=== PATIENT | male | born 1990 | race African-American/Black ===

== ENCOUNTER 2018-06-07 15:59 | Emergency (ER) | payer OTHER, SELFPAY ==
--- NOTE | 2018-06-07 16:59 | ER ---
Nurse's Notes [facility] Name: Mando Dorado Age: 27 yrs Sex: Male : 1990 Arrival Date: 06/07/2018 Time: 16:02 Bed 23 Private MD: None, None Diagnosis: Acute streptococcal tonsillitis, unspecified Presentation: 06/07 16:11 Presenting complaint: Patient states: my throat hurts and it started 3 days ago; and hj now my L ear hurts; reports fever and chills; took tylenol 2 am today;. Transition of care: patient was not received from another setting of care. Onset of symptoms was June 07, 2018. Risk Assessment: Do you want to hurt yourself or someone else? Patient reports no desire to harm self or others. Initial Sepsis Screen: Does the patient meet any 2 criteria? No. Patient's initial sepsis screen is negative. Does the patient have a suspected source of infection? No. Patient's initial sepsis screen is negative. Care prior to arrival: None. 16:11 Method Of Arrival: Ambulatory 16:11 Acuity: MINI 4 hj Triage Assessment: 16:12 General: Appears in no apparent distress. uncomfortable, Behavior is calm, cooperative, hj appropriate for age. Pain: Complains of pain in throat. EENT: Reports pain when swallowing. Historical: - Allergies: 16:12 No Known Allergies; hj - Home Meds: 16:12 None [Active]; hj - PMHx: 16:12 None; hj - PSHx: 16:12 None; hj - Immunization history:: Adult Immunizations up to date. - Social history:: Smoking status: Patient uses tobacco products, Patient uses alcohol. - Ebola Screening: : Patient negative for fever greater than or equal to 101.5 degrees Fahrenheit, and additional compatible Ebola Virus Disease symptoms Patient denies exposure to infectious person Patient denies travel to an Ebola-affected area in the 21 days before illness onset. Screenin:13 Abuse screen: Denies threats or abuse. Denies injuries from another. Nutritional hj screening: No deficits noted. Tuberculosis screening: No symptoms or risk factors identified. Fall Risk None identified. Assessment: 16:13 Respiratory: Airway is patent Respiratory effort is even, unlabored, Respiratory hj pattern is regular, symmetrical, Breath sounds are clear. EENT: Throat. 17:03 General: Appears in no apparent distress. uncomfortable, Behavior is calm, cooperative, aj1 appropriate for age. Pain: Complains of pain in left aspect of posterior pharynx and right aspect of posterior pharynx. Neuro: Level of Consciousness is awake, alert, obeys commands. Cardiovascular: Patient's skin is warm and dry. Respiratory: Airway is patent Respiratory effort is even, unlabored, Respiratory pattern is regular, symmetrical. GI: No signs and/or symptoms were reported involving the gastrointestinal system. : No signs and/or symptoms were reported regarding the genitourinary system. EENT: Throat is reddened bilaterally. Derm: No signs and/or symptoms reported regarding the dermatologic system. Skin is pink, warm \T\ dry. normal. Musculoskeletal: No signs and/or symptoms reported regarding the musculoskeletal system. Circulation, motion, and sensation intact. Vital Signs: 16:13 BP 132 / 100; Pulse 92; Resp 18; Temp 98.1(TE); Pulse Ox 99% on R/A; Weight 90.72 kg; hj Height 5 ft. 8 in. (172.72 cm); Pain 10/10; 16:13 Body Mass Index 30.41 (90.72 kg, 172.72 cm) ED Course: 16:02 Patient arrived in ED. mr 16:03 None, None is Private Physician. mr 16:12 Triage completed. hj 16:13 Arm band placed on right wrist. hj 16:13 Patient has correct armband on for positive identification. Bed in low position. Call light in reach. Side rails up X 1. 16:26 Strep Sent. hj 16:26 Flu Sent. hj 16:32 Serge Byrd PA is PHCP. [facility] 16:32 Conner Lizama MD is Attending Physician. jr8 17:03 Zamzam Escamilla, LORETO is Primary Nurse. aj1 17:03 No provider procedures requiring assistance completed. Patient did not have IV access aj1 during this emergency room visit. Administered Medications: No medications were administered Outcome: 16:58 Discharge ordered by . jr8 17:13 Discharged to home ambulatory. aj1 17:13 Condition: good 17:13 Discharge instructions given to patient, Instructed on discharge instructions, follow up and referral plans. medication usage, Demonstrated understanding of instructions, follow-up care, medications, Prescriptions given X 3. 17:13 Patient left the ED. aj1 Signatures: Zamzam Escamilla RN RN aj1 JoséLavinia ellsworth mr Serge Byrd PA PA jr8 Kalin Núñez RN RN hj Corrections: (The following items were deleted from the chart) 16:15 16:13 Pulse 92bpm; Resp 18bpm; Pulse Ox 99% RA; Temp 98.1F Temporal; 90.72 kg; Height 5 hj ft. 8 in.; BMI: 30.4; Pain 10/10; hj
--- NOTE | 2018-06-07 16:59 | EDPHYS ---
Physician Documentation [facility] Name: Mando Dorado Age: 27 yrs Sex: Male : 1990 Arrival Date: 06/07/2018 Time: 16:02 Bed 23 Private MD: None, None ED Physician Conner Lizama HPI: 06/07 16:51 This 27 yrs old Black Male presents to ER via Ambulatory with complaints of Sore jr8 Throat, Breathing Difficulty. 16:51 The patient presents with sore throat. The patient describes throat pain as constant, jr8 raw. Onset: The symptoms/episode began/occurred gradually, 3 day(s) ago. Severity of symptoms: At their worst the symptoms were moderate, in the emergency department the symptoms are unchanged. Modifying factors: The symptoms are alleviated by nothing, the symptoms are aggravated by swallowing. Associated signs and symptoms: Pertinent positives: fever. The patient has not experienced similar symptoms in the past. The patient has not recently seen a physician. Historical: - Allergies: 16:12 No Known Allergies; hj - Home Meds: 16:12 None [Active]; hj - PMHx: 16:12 None; hj - PSHx: 16:12 None; hj - Immunization history:: Adult Immunizations up to date. - Social history:: Smoking status: Patient uses tobacco products, Patient uses alcohol. - Ebola Screening: : Patient negative for fever greater than or equal to 101.5 degrees Fahrenheit, and additional compatible Ebola Virus Disease symptoms Patient denies exposure to infectious person Patient denies travel to an Ebola-affected area in the 21 days before illness onset. ROS: 16:51 Eyes: Negative for injury, pain, redness, and discharge, Neck: Negative for injury, jr8 pain, and swelling, Cardiovascular: Negative for chest pain, palpitations, and edema, Respiratory: Negative for shortness of breath, cough, wheezing, and pleuritic chest pain, Abdomen/GI: Negative for abdominal pain, nausea, vomiting, diarrhea, and constipation, Back: Negative for injury and pain, MS/Extremity: Negative for injury and deformity, Skin: Negative for injury, rash, and discoloration, Neuro: Negative for headache, weakness, numbness, tingling, and seizure. 16:51 Constitutional: Positive for fever. 16:51 ENT: Positive for difficulty swallowing, sore throat. Exam: 16:51 Head/Face: Normocephalic, atraumatic. Eyes: Pupils equal round and reactive to light, jr8 extra-ocular motions intact. Lids and lashes normal. Conjunctiva and sclera are non-icteric and not injected. Cornea within normal limits. Periorbital areas with no swelling, redness, or edema. Cardiovascular: Regular rate and rhythm with a normal S1 and S2. No gallops, murmurs, or rubs. Normal PMI, no JVD. No pulse deficits. Respiratory: Lungs have equal breath sounds bilaterally, clear to auscultation and percussion. No rales, rhonchi or wheezes noted. No increased work of breathing, no retractions or nasal flaring. Abdomen/GI: Soft, non-tender, with normal bowel sounds. No distension or tympany. No guarding or rebound. No evidence of tenderness throughout. Back: No spinal tenderness. No costovertebral tenderness. Full range of motion. Skin: Warm, dry with normal turgor. Normal color with no rashes, no lesions, and no evidence of cellulitis. MS/ Extremity: Pulses equal, no cyanosis. Neurovascular intact. Full, normal range of motion. Neuro: Awake and alert, GCS 15, oriented to person, place, time, and situation. Cranial nerves II-XII grossly intact. Motor strength 5/5 in all extremities. Sensory grossly intact. Cerebellar exam normal. Normal gait. 16:51 ENT: External ear(s): are unremarkable, Ear canal(s): are normal, clear, TM's: are normal, no evidence of bulging, no dullness, no erythema, no fluid levels, no hemotympanum, no rupture, normal bony landmarks, normal mobility, Nose: External nose: no obvious acute abnormality, Nasal septum: is midline, Nasal mucosa: moist, Turbinates: are normal, Mouth: Lips: moist, Oral mucosa: pink and intact, moist, Gums: pink, Tongue: is moist, Posterior pharynx: Airway: patent, Tonsils: bilaterally enlarged, with erythema, no exudate, no ulcerations, Uvula: midline, non-edematous, no erythema, swelling, is not appreciated, erythema, that is moderate. 16:51 Neck: External neck: is normal, C-spine: appears grossly normal, Thyroid: appears normal, Trachea: is midline with no obvious abnormalities, ROM/movement: is normal, Lymph nodes: lymphadenopathy is appreciated, submandibular nodes. Vital Signs: 16:13 BP 132 / 100; Pulse 92; Resp 18; Temp 98.1(TE); Pulse Ox 99% on R/A; Weight 90.72 kg; hj Height 5 ft. 8 in. (172.72 cm); Pain 10/10; 16:13 Body Mass Index 30.41 (90.72 kg, 172.72 cm) MDM: 16:32 Patient medically screened. [facility] 16:51 Data reviewed: vital signs, nurses notes, lab test result(s), and as a result, I will 8 discharge patient. Data interpreted: Pulse oximetry: on room air is 99 %. Interpretation: normal. Counseling: I had a detailed discussion with the patient and/or guardian regarding: the historical points, exam findings, and any diagnostic results supporting the discharge/admit diagnosis, lab results, the need for outpatient follow up, a family practitioner, to return to the emergency department if symptoms worsen or persist or if there are any questions or concerns that arise at home. 06/07 16:15 Order name: Flu; Complete Time: 16:47 06/07 16:15 Order name: Strep; Complete Time: 16:47 Administered Medications: No medications were administered Disposition: 06/08 15:57 Co-signature as Attending Physician, Conner Lizama MD I agree with the assessment and kdr plan of care. Disposition: 06/07/18 16:58 Discharged to Home. Impression: Acute streptococcal tonsillitis, unspecified. - Condition is Stable. - Discharge Instructions: Strep Throat. - Prescriptions for Augmentin 875- 125 mg Oral Tablet - take 1 tablet by ORAL route every 12 hours for 10 days; 20 tablet. Tessalon Perles 100 mg Oral Capsule - take 1 capsule by ORAL route every 8 hours As needed; 15 capsule. Ibuprofen 800 mg Oral Tablet - take 1 tablet by ORAL route every 12 hours As needed take with food; 20 tablet. - Medication Reconciliation Form, Thank You Letter, Antibiotic Education, Prescription Opioid Use form. - Follow up: Private Physician; When: 1 week; Reason: Recheck today's complaints, Continuance of care, Re-evaluation by your physician. - Problem is new. - Symptoms have improved. Signatures: Dispatcher [employer] EDZamzam Rucker RN RN aj1 Conner Lizama MD MD kdr Serge Byrd PA PA jr8 Kalin Núñez RN RN hj Corrections: (The following items were deleted from the chart) 06/07 17:13 16:58 06/07/2018 16:58 Discharged to Home. Impression: Acute streptococcal tonsillitis, aj1 unspecified. Condition is Stable. Forms are Medication Reconciliation Form, Thank You Letter, Antibiotic Education, Prescription Opioid Use. Follow up: Private Physician; When: 1 week; Reason: Recheck today's complaints, Continuance of care, Re-evaluation by your physician. Problem is new. Symptoms have improved. jr8
== END 2018-06-07 17:13 | disposition home or self-care (01) ==
LOC: ER 15:59
DX: J03.00 Acute streptococcal tonsillitis, unspecified (principal); Z72.0 Tobacco use
CPT/HCPCS: 87081; 87804; 99283

== ENCOUNTER 2021-05-17 01:05 | Emergency (ER) | payer SELFPAY ==
--- OUTSIDE RECORDS SUMMARY | 2021-05-17 01:09 | XMS REPORT | Continuity of Care Document ---
:1990 Author Organization [facility] t Address [address] [place] [address] Dr. Perrin [address] [place] [id number] Care Team Providers Name Role Phone Unavailable Unavailable Unavailable Problems Condition Condition Condition Status Onset Resolution Last Treating Co mments Source Name Details Category Date Date Treatment Clinician Date Well adult Well adult Diagnosis Active [facility] routine on routine [facility] Adult BMI Adult BMI Diagnosis Active [facility] 30.0-30.9 30.0-30.9 [place] [facility] - kg/sq m kg/sq m [facility] ent Clinics Tobacco Tobacco Diagnosis Active [facility] ent Clinics Elevated Elevated Diagnosis Active [facility] BP without BP without Lucinda s - diagnosis diagnosis Taye joe of of l hypertensi hypertensi Ou tpati on on ent Clinics Allergies, Adverse Reactions, Alerts This patient has no known allergies or adverse reactions. Medications This patient has no known medications. Procedures This patient has no known procedures. Encounters Start End Encounter Admission Attending Care Care Encounter Source Date/Time Date/Time Type Type Clinicians Facility Department ID 2018-06-16 2018-06-16 Outpatient Migdalia Douglass [id number] [facility] [address] 13:00:00 13:00:00 [facility] Medicine [facility] ent Clinics Results This patient has no known results.
--- NOTE | 2021-05-17 02:09 | ER ---
Nurse's Notes [facility] Name: Mando Dorado Age: 30 yrs Sex: Male : 1990 Arrival Date: 05/17/2021 Time: 01:11 Bed Waiting Private MD: Diagnosis: Presentation: 05/17 01:15 Chief complaint: Patient states: short of breath, cough. Coronavirus screen: Vaccine da3 status: Patient reports being unvaccinated. Ebola Screen: No symptoms or risks identified at this time. Initial Sepsis Screen: Does the patient meet any 2 criteria? No. Patient's initial sepsis screen is negative. Risk Assessment: Do you want to hurt yourself or someone else? Patient reports no desire to harm self or others. Onset of symptoms was May 17, 2021. 01:15 Method Of Arrival: Ambulatory da3 01:15 Acuity: MINI 4 da3 Triage Assessment: 01:18 General: Appears in no apparent distress. comfortable, Behavior is calm, cooperative. da3 Pain: Complains of pain in chest Pain currently is 6 out of 10 on a pain scale. Respiratory: Reports cough that is pain with cough pain with movement pain with respiration Onset: The symptoms/episode began/occurred gradually, the patient has mild shortness of breath. Historical: - Allergies: 01:17 No Known Allergies; da3 - Immunization history:: Client reports having NOT received the Covid vaccine. - Social history:: Smoking status: Patient reports the use of cigarette tobacco products, smokes one-half pack cigarettes per day. Vital Signs: 01:15 BP 130 / 77; Pulse 90; Resp 20; Temp 99.1; Pulse Ox 99% on R/A; Weight 102.06 kg; da3 Height 5 ft. 8 in. (172.72 cm); 01:15 Body Mass Index 34.21 (102.06 kg, 172.72 cm) da3 ED Course: 01:11 Patient arrived in ED. 01:17 Triage completed. da3 Administered Medications: No medications were administered Outcome: 02:09 Patient left the ED. da3 Signatures: Maira Abraham David RN RN da3
[2021-05-17 02:19] VITALS: BP 130/77; TEMP 99.1; O2SAT 99
== END 2021-05-17 02:09 | disposition left against medical advice (07) ==
LOC: ER 01:05
DX: Z53.21 Procedure and treatment not carried out due to patient leaving prior to being seen by health care provider (principal)
CPT/HCPCS: 99281

== ENCOUNTER 2022-12-23 16:45 | Emergency (ER) | payer SELFPAY ==
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
[2022-12-23] MEDS ORDERED: NA CHLORIDE 0.9% 1,000 ML ONE (17:41)
--- NOTE | 2022-12-23 17:49 | RAD REPORT ---
EXAM DESCRIPTION: RAD - Chest Single View - 12/23/2022 5:33 pm CLINICAL HISTORY: PALPITATIONS Chest pain. COMPARISON: <Comparisons> FINDINGS: Portable technique limits examination quality. The lungs are grossly clear. The heart is normal in size. No displaced fractures. IMPRESSION: No acute intrathoracic process suspected.
[2022-12-23 17:56] LABS: Absolute Lymphocytes (CBC) 1.7 K/uL (0.7-4.9); Hematocrit 48.7 % (39.6-49.0); Lymphocytes % 22.9 % (15.3-44.8); MCV 89.1 fL (80-100); MPV 9.2 fL (7.6-11.3); RBC Red Blood Cell Count 5.47 M/uL (4.33-5.43)
[2022-12-23 18:07] LABS: Potassium 4.3 mEq/L (3.5-5.1); Troponin High Sensitivity 6.6 pg/mL (<58.9)
[2022-12-23 18:14] LABS: Magnesium 2.3 mg/dL (1.6-2.4); T3 Free 2.98 pg/mL (2.18-3.98); Thyroid Stimulating Hormone 1.19 uIU/mL (0.358-3.740)
[2022-12-23 18:35] LABS: Barbiturates NEGATIVE (NEGATIVE); Benzodiazepines NEGATIVE (NEGATIVE); Cocaine NEGATIVE (NEGATIVE); METHAMPHETAM NEGATIVE (NEGATIVE); Methadone NEGATIVE (NEGATIVE); Opiates NEGATIVE (NEGATIVE); Phencyclidine NEGATIVE (NEGATIVE); THC Cannibis NEGATIVE (NEGATIVE)
--- NOTE | 2022-12-23 19:30 | RAD REPORT ---
EXAM DESCRIPTION: US - Extrem Venous W Compress Marcus - 12/23/2022 7:14 pm CLINICAL HISTORY: SWELLING Bilateral leg edema and swelling. COMPARISON: <Comparisons> TECHNIQUE: Real-time sonographic interrogation of the left and right lower extremity deep venous sys tems was performed. FINDINGS: Normal compressibility, flow augmentation, phasic flow and spontaneous flow is identified in both the left and right lower extremity deep venous systems. IMPRESSION: No sonographic evidence of left or right lower extremity deep venous thrombosis.
--- NOTE | 2022-12-23 19:40 | EDPHYS ---
Physician Documentation [facility] Name: Mando Dorado Age: 32 yrs Sex: Male : 1990 Arrival Date: 12/23/2022 Time: 16:45 Bed 12 Private MD: ED Physician Santana Carrillo HPI: 12/23 17:25 This 32 yrs old Black Male presents to ER via Ambulatory with complaints of Feet cp Swelling, Irregular Pulse. 17:25 The patient presents with a history of heart racing. cp 17:25 Context: The symptoms occur at rest. Onset: The symptoms/episode began/occurred today. cp Duration: The patient or guardian reports a single episode, that is now resolved, that lasted 45 minute(s). Associated signs and symptoms: Pertinent positives: swelling of feet, Pertinent negatives: chest pain, cough, fever, SOB, syncope, near-syncope, vomiting. Severity of symptoms: in the emergency department the symptoms have resolved and did so just prior to arrival. Historical: - Allergies: 16:52 No Known Allergies; iw - Home Meds: 16:52 None [Active]; iw - PMHx: 16:52 None; iw - PSHx: 16:52 Exploratory laparotomy; iw - Immunization history:: Client reports having NOT received the Covid vaccine. - Social history:: Smoking status: Patient reports the use of cigarette tobacco products. ROS: 17:30 Constitutional: Negative for body aches, chills, fever, poor PO intake. cp 17:30 Cardiovascular: Positive for palpitations, Negative for chest pain. cp 17:30 Respiratory: Negative for cough, shortness of breath, wheezing. 17:30 Eyes: Negative for injury, pain, redness, and discharge. cp 17:30 ENT: Negative for drainage from ear(s), ear pain, sore throat, difficulty swallowing, difficulty handling secretions. 17:30 Neck: Negative for pain with movement, pain at rest, stiffness. 17:30 Abdomen/GI: Negative for abdominal pain, vomiting, diarrhea, constipation. 17:30 Back: Negative for pain at rest, pain with movement. 17:30 : Negative for urinary symptoms. 17:30 Skin: Negative for cellulitis, rash. 17:30 Neuro: Negative for altered mental status, dizziness, headache, syncope, weakness. 17:30 All other systems are negative. Exam: 17:05 ECG was reviewed by the Attending Physician. cp 17:35 Constitutional: The patient appears in no acute distress, alert, awake, cp non-diaphoretic, non-toxic, well developed, well nourished. 17:35 Head/Face: Normocephalic, atraumatic. cp 17:35 Eyes: Periorbital structures: appear normal, Pupils: equal, round, and reactive to light and accomodation, Extraocular movements: intact throughout, Conjunctiva: normal, no exudate, no injection, Sclera: no appreciated abnormality, Lids and lashes: appear normal, bilaterally. 17:35 ENT: External ear(s): are unremarkable, Nose: is normal, Mouth: Lips: moist, Oral mucosa: pink and intact, moist, Posterior pharynx: is normal, airway is patent, no erythema, no exudate. 17:35 Neck: ROM/movement: is normal, is supple, without pain, no range of motions limitations. 17:35 Chest/axilla: Inspection: normal. 17:35 Cardiovascular: Rate: normal, Rhythm: regular, Edema: is not appreciated, JVD: is not appreciated. 17:35 Respiratory: the patient does not display signs of respiratory distress, Respirations: normal, no use of accessory muscles, no retractions, labored breathing, is not present, Breath sounds: are clear throughout, no decreased breath sounds, no stridor, no wheezing. 17:35 Abdomen/GI: Inspection: abdomen appears normal, Palpation: abdomen is soft and non-tender, in all quadrants. 17:35 Back: pain, is absent, ROM is normal. 17:35 Neuro: Orientation: to person, place \T\ time. Mentation: is normal, Cerebellar function: is grossly normal, Motor: moves all fours, strength is normal, Sensation: is normal. Vital Signs: 16:51 BP 133 / 89; Pulse 86; Resp 16; Temp 97.1; Pulse Ox 98% on R/A; Weight 102.06 kg; iw Height 5 ft. 8 in. ; 18:41 BP 134 / 78; Pulse 70; Resp 16 S; Pulse Ox 99% on R/A; kc6 19:51 BP 135 / 75; Pulse 68; Resp 18 S; Pulse Ox 99% on R/A; ha1 16:51 Body Mass Index 34.21 (102.06 kg, 172.72 cm) iw MDM: 17:23 Patient medically screened. 18:00 Differential diagnosis: arrythmia, dehydration, stress disorder, anxiety, DVT. 19:40 Data reviewed: vital signs, nurses notes, lab test result(s), EKG, radiologic studies, cp plain films, ultrasound. 19:40 I considered the following discharge prescriptions or medication management in the emergency department Medications were administered in the Emergency Department. See MAR. Counseling: I had a detailed discussion with the patient and/or guardian regarding: the historical points, exam findings, and any diagnostic results supporting the discharge/admit diagnosis, lab results, radiology results, the need for outpatient follow up, a cardroom hand, to return to the emergency department if symptoms worsen or persist or if there are any questions or concerns that arise at home. 12/23 17:19 Order name: Basic Metabolic Panel; Complete Time: 19:04 [facility] 12/23 19:04 Interpretation: Normal except: CL 110; GLUC 130; GFR 89. 12/23 17:19 Order name: CBC with Diff; Complete Time: 19:04 [facility] 12/23 19:04 Interpretation: Normal except: RBC 5.47; EOSINOPHIL % 7.9; EOSA 0.6. 12/23 17:19 Order name: Troponin HS; Complete Time: 19:04 [facility] 12/23 19:04 Interpretation: Troponin HS 6.6; Reviewed. 12/23 17:31 Order name: TSH; Complete Time: 19:04 12/23 17:31 Order name: T3 Free; Complete Time: 19:04 12/23 17:31 Order name: T4 Free; Complete Time: 19:04 12/23 17:31 Order name: D-Dimer; Complete Time: 19:04 12/23 19:05 Interpretation: D-DIMER 274; Reviewed. 12/23 17:31 Order name: UDS; Complete Time: 19:04 12/23 19:05 Interpretation: Reviewed. 12/23 17:31 Order name: Magnesium; Complete Time: 19:04 12/23 17:19 Order name: XRAY Chest (1 view); Complete Time: 19:04 [facility] 12/23 19:04 Interpretation: Report review. 12/23 17:59 Order name: US Extremity Venous W Compression Marcus; Complete Time: 19:36 cp 12/23 19:36 Interpretation: Report reviewed. cp 12/23 17:19 Order name: EKG; Complete Time: 17:20 [facility] 12/23 17:19 Order name: Cardiac monitoring; Complete Time: 17:19 [facility] 12/23 17:19 Order name: EKG - Nurse/Tech; Complete Time: 17:19 [facility] 12/23 17:19 Order name: IV Saline Lock; Complete Time: 17:42 [facility] 12/23 17:19 Order name: Labs collected and sent; Complete Time: 17:42 [facility] 12/23 17:19 Order name: O2 Per Protocol; Complete Time: 17: [facility] 12/23 17:19 Order name: O2 Sat Monitoring; Complete Time: : kc EC:05 Rate is 85 beats/min. Rhythm is regular. [place] interval is normal. QRS interval is normal. cp QT interval is normal. T waves are Inverted in leads III, aVR. Interpreted by me. Reviewed by me. Administered Medications: 17:42 Drug: NS 0.9% IV 1000 ml Route: IV; Rate: 500 ml/hr; Site: right antecubital; 6 19:53 Follow up: Response: No adverse reaction; IV Status: Completed infusion; IV Intake: ha1 1000ml Disposition: 12/24 10:06 Co-signature as Attending Physician, Santana Carrillo MD I reviewed the patient's care rn provided by the Advanced Practice Provider and agree with the diagnosis and treatment plan. Disposition Summary: 12/23/22 19:40 Discharge Ordered Location: Home cp Problem: new cp Symptoms: have improved cp Condition: Stable cp Diagnosis - Palpitations cp Followup: cp - With: Heriberto Le MD - When: 2 - 3 days - Reason: Recheck today's complaints Discharge Instructions: - Discharge Summary Sheet cp - Nonspecific Chest Pain, Adult cp - Palpitations cp - Aspirin and Your Heart cp - Ambulatory Cardiac Monitoring cp - Form - Return To Work cp Forms: - Medication Reconciliation Form cp - Thank You Letter cp - Antibiotic Education cp - Prescription Opioid Use cp - Patient Portal Instructions cp - Work release form ha1 Signatures: Dispatcher [employer] Patti Etienne RN RN iw Nieto, Roman, MD MD rn Page, Corey, PA PA cp Campbell, Kaitlyn, RN RN 6 Tammi Hinson RN ha1 Corrections: (The following items were deleted from the chart) 12/23 16:52 16:52 PSHx: None; iw iw
--- NOTE | 2022-12-23 19:40 | ER ---
Nurse's Notes [facility] Name: Mando Dorado Age: 32 yrs Sex: Male : 1990 Arrival Date: 12/23/2022 Time: 16:45 Bed 12 Private MD: Diagnosis: Palpitations Presentation: 12/23 16:51 Chief complaint: Patient states: i was laying down and my heart started beating fast a, iw lasted about 45 minutes, denies caffeine use, my feet are swollen also. Coronavirus screen: At this time, the client does not indicate any symptoms associated with coronavirus-19. Ebola Screen: Patient negative for fever greater than or equal to 101.5 degrees Fahrenheit, and additional compatible Ebola Virus Disease symptoms Patient denies exposure to infectious person. Patient denies travel to an Ebola-affected area in the 21 days before illness onset. Patient positive for the following Ebola Virus Disease associated symptoms:. Initial Sepsis Screen: Does the patient meet any 2 criteria? No. Patient's initial sepsis screen is negative. Does the patient have a suspected source of infection? No. Patient's initial sepsis screen is negative. Risk Assessment: Do you want to hurt yourself or someone else? Patient reports no desire to harm self or others. Onset of symptoms was December 23, 2022. 16:51 Method Of Arrival: Ambulatory iw 16:51 Acuity: MINI 3 iw Historical: - Allergies: 16:52 No Known Allergies; iw - Home Meds: 16:52 None [Active]; iw - PMHx: 16:52 None; iw - PSHx: 16:52 Exploratory laparotomy; iw - Immunization history:: Client reports having NOT received the Covid vaccine. - Social history:: Smoking status: Patient reports the use of cigarette tobacco products. Screenin:12 [facility] ED Fall Risk Assessment (Adult) History of falling in the last 3 months, kc6 including since admission No falls in past 3 months (0 pts) Confusion or Disorientation No (0 pts) Intoxicated or Sedated No (0 pts) Impaired Gait No (0 pts) Mobility Assist Device Used No (0 pt) Altered Elimination No (0 pt) Score/Fall Risk Level 0 - 2 = Low Risk Oriented to surroundings, Maintained a safe environment, Educated pt \T\ family on fall prevention, incl call for assistance when getting out of bed, Assessed \T\ reinforced patient's understanding of fall precautions, Hourly rounding (assess needs \T\ fall precautionary measures) done. Abuse screen: Denies threats or abuse. Denies injuries from another. Nutritional screening: No deficits noted. Tuberculosis screening: No symptoms or risk factors identified. Assessment: 17:11 General: Appears in no apparent distress. comfortable, Behavior is calm, cooperative, kc6 appropriate for age. Pain: Denies pain. Neuro: Level of Consciousness is awake, alert, obeys commands, Oriented to person, place, time, situation, Appropriate for age. Cardiovascular: Reports palpitations, Denies chest pain, shortness of breath, Heart tones S1 S2 present Capillary refill < 3 seconds Edema is absent. Rhythm is sinus rhythm. Respiratory: Airway is patent Trachea midline Respiratory effort is even, unlabored, Respiratory pattern is regular, symmetrical. GI: No signs and/or symptoms were reported involving the gastrointestinal system. : No signs and/or symptoms were reported regarding the genitourinary system. EENT: No signs and/or symptoms were reported regarding the EENT system. Derm: No signs and/or symptoms reported regarding the dermatologic system. Skin is intact, is healthy with good turgor, Skin is pink, warm \T\ dry. Musculoskeletal: No signs and/or symptoms reported regarding the musculoskeletal system. Circulation, motion, and sensation intact. Capillary refill < 3 seconds, Range of motion: intact in all extremities. 18:11 Reassessment: Patient appears in no apparent distress at this time. No changes from kc6 previously documented assessment. Patient and/or family updated on plan of care and expected duration. Pain level reassessed. Patient is alert, oriented x 3, equal unlabored respirations, skin warm/dry/pink. Patient denies pain at this time. Patient states feeling better. Patient states symptoms have improved. 19:51 Reassessment: Patient and/or family updated on plan of care and expected duration. Pain ha1 level reassessed. Patient is alert, oriented x 3, equal unlabored respirations, skin warm/dry/pink. Patient states feeling better. Patient states symptoms have improved. Pain: Denies pain. Vital Signs: 16:51 BP 133 / 89; Pulse 86; Resp 16; Temp 97.1; Pulse Ox 98% on R/A; Weight 102.06 kg; iw Height 5 ft. 8 in. ; 18:41 BP 134 / 78; Pulse 70; Resp 16 S; Pulse Ox 99% on R/A; kc6 19:51 BP 135 / 75; Pulse 68; Resp 18 S; Pulse Ox 99% on R/A; ha1 16:51 Body Mass Index 34.21 (102.06 kg, 172.72 cm) ED Course: 16:46 Patient arrived in ED. am2 16:50 Chandrakant Farias PA is PHCP. cp 16:50 Santana Carrillo MD is Attending Physician. cp 16:52 Triage completed. iw 16:53 Arm band placed on. iw 17:04 Jhoana Zaidi, LORETO is Primary Nurse. kc6 17:12 Patient has correct armband on for positive identification. Bed in low position. Call kc6 light in reach. Side rails up X 1. Adult w/ patient. Client placed on continuous cardiac and pulse oximetry monitoring. NIBP monitoring applied. monitoring analyst on. 17:12 Patient maintains SpO2 saturation greater than 95% on room air. kc6 17:35 XRAY Chest (1 view) In Process Unspecified. EDMS 17:51 Inserted saline lock: 20 gauge in right antecubital area, using aseptic technique. kc6 Blood collected. 19:16 US Extremity Venous W Compression Marcus In Process Unspecified. EDMS 19:39 Heriberto Le MD is Referral Physician. cp 19:51 No provider procedures requiring assistance completed. IV discontinued, intact, ha1 bleeding controlled, No redness/swelling at site. Pressure dressing applied. 19:52 Provided Education on: follow ups. ha1 Administered Medications: 17:42 Drug: NS 0.9% IV 1000 ml Route: IV; Rate: 500 ml/hr; Site: right antecubital; kc6 19:53 Follow up: Response: No adverse reaction; IV Status: Completed infusion; IV Intake: ha1 1000ml Medication: 19:53 VIS not applicable for this client. ha1 Intake: 19:53 IV: 1000ml; Total: 1000ml. ha1 Outcome: 19:40 Discharge ordered by . cp 19:52 Discharged to home ambulatory, with family. ha1 19:52 Condition: stable 19:52 Discharge instructions given to patient, family, Instructed on discharge instructions, follow up and referral plans. Demonstrated understanding of instructions, follow-up care. 19:53 Patient left the ED. ha1 Signatures: Dispatcher [employer] Patti Etienne RN RN iw Chandrakant Farias PA PA cp Moreno, Amanda am2 Ayala, Heidy, RN RN ha1 Jhoana Zaidi RN RN kc6 Corrections: (The following items were deleted from the chart) 16:52 16:52 PSHx: None; iw gilbert
[2022-12-23 20:39] VITALS: TEMP 97.1
[2022-12-23 20:41] VITALS: O2SAT 99
[2022-12-23 20:42] VITALS: BP 135/75
--- NOTE | 2022-12-24 13:17 | EKG ---
Test Date: 2022-12-23 Test Time: 16:58:23 Occ Therapy Asst: FRANCISCA MEASUREMENT RESULTS: Intervals: Rate: 85 GA: 158 QRSD: 92 QT: 354 QTc: 421 [place]: P: 43 GA: 158 QRS: 46 T: 20 INTERPRETIVE STATEMENTS: Normal sinus rhythm Normal ECG No previous ECG available for comparison Electronically Signed On 12-24-22 13:15:35 CDT by Heriberto Le
== END 2022-12-23 19:53 | disposition home or self-care (01) ==
LOC: ER 16:45
DX: R00.2 Palpitations (principal)
CPT/HCPCS: 36415; 71045; 80048; 80307; 83735; 84439; 84443; 84481; 84484; 85025; 85379; 93005; 93970; J7030